=== PATIENT | female | born 1935 | race Caucasian/White ===

== ENCOUNTER 2020-04-14 17:21 | Inpatient (IN) ==
[2020-04-14] MEDS ORDERED: *HR* LORazepam 1 MG TABLET PO PRN (19:04)
[2020-04-14] MEDS ORDERED: hydrALAZINE 25 MG TABLET PO PRN (19:04)
[2020-04-15 05:47] LABS: Basophils % 0.1 %; Eosinophils # 0.3 K/mcL (0.0-0.6); Eosinophils % 1.9 %; Hematocrit 21.4 % (35.3-44.9); Hemoglobin 7.3 g/dL (11.5-15.4); Immature Granulocytes % 1.9 % (0-4); Lymphocytes # 1.3 K/mcL (0.6-4.6); Lymphocytes % 8.4 %; Mean Corpuscular HGB Conc 34.1 g/dL (31.6-35.5); Mean Corpuscular Hemoglobin 32.6 pg (28.0-33.3); Mean Corpuscular Volume 95.5 fL (83.0-100.0); Mean Platelet Volume 8.8 fL (9.4-12.4); Monocytes # 1.5 K/mcL (0.0-1.3); Monocytes % 9.8 %; Neutrophils # 12.1 K/mcL (1.6-8.9); Platelet Count 470 K/mcL (140-400); Red Blood Count 2.24 M/mcL (3.82-4.97); Red Cell Distribution Width 15.5 % (11.5-14.5); Segmented Neutrophils % 77.9 %; White Blood Count 15.5 K/mcL (4.3-11.1)
[2020-04-15 06:05] LABS: Alanine Aminotransferase 20 Units/L (7-52); Albumin 2.4 g/dL (3.5-5.7); Albumin/Globulin Ratio 1.3 (1.1-2.2); Alkaline Phosphatase 58 Units/L (34-104); Aspartate Amino Transferase 29 Units/L (13-39); BUN/Creatinine Ratio 45 (6-26); Bilirubin,Total 0.9 mg/dL (0.3-1.0); Blood Urea Nitrogen 19 mg/dL (8-23); Calcium 7.1 mg/dL (8.6-10.3); Carbon Dioxide 23 mEq/L (23-29); Chloride 99 mEq/L (98-107); Globulin 1.9 g/dL (2.4-3.5); Glucose 86 mg/dL (70-105); Magnesium 1.7 mg/dL (1.6-2.6); Osmolality,Calculated 266 (280-300); Potassium 3.6 mEq/L (3.5-5.1); Sodium 127 mEq/L (136-145); Total Protein 4.3 g/dL (6.4-8.9); eGFR For African Americans > 60 (> 60); eGFR For Non-African Americans > 60 (> 60)
[2020-04-15] MEDS: Sucralfate 1 GM TABLET PO PRN (08:58)
[2020-04-15] MEDS ORDERED: Aspirin Enteric Coated 81 MG Tablet PO SCH (09:00)
[2020-04-15] MEDS: amLODIPine 5 MG TABLET PO SCH (10:13)
[2020-04-15] MEDS: lisinopriL 5 MG TABLET PO SCH (10:14)
[2020-04-15] MEDS: Cholecalciferol (D-3) 1,000 UNIT (25MCG) TABLET PO SCH (10:15)
[2020-04-15] MEDS: Mirabegron [Myrbetriq] 50 MG PO SCH (10:15)
[2020-04-15] MEDS: Multivit/Ca/Min/Fe/FA 1 TAB TABLET PO SCH (10:17)
[2020-04-15] MEDS: *HR* OxyCODONE Immed Rel 5 MG TABLET PO PRN ×3 (10:53→21:56)
[2020-04-15] MEDS ORDERED: tiZANidine 4 MG TABLET PO PRN (12:35)
[2020-04-15] MEDS: *HR* LORazepam 1 MG TABLET PO PRN ×2 (14:59→21:55)
[2020-04-15] MEDS ORDERED: 0.9 % Sodium Chloride 250 ML IVC SCH (15:30)
[2020-04-16] MEDS: *HR* OxyCODONE Immed Rel 5 MG TABLET PO PRN ×4 (03:26→18:21)
[2020-04-16 06:04] LABS: Basophils # 0.1 K/mcL (0.0-0.2); Basophils % 0.3 %; Eosinophils # 0.3 K/mcL (0.0-0.6); Eosinophils % 1.4 %; Hemoglobin 9.4 g/dL (11.5-15.4); Immature Granulocytes % 3.4 % (0-4); Lymphocytes # 1.5 K/mcL (0.6-4.6); Lymphocytes % 6.8 %; Mean Corpuscular HGB Conc 33.6 g/dL (31.6-35.5); Mean Corpuscular Volume 95.2 fL (83.0-100.0); Mean Platelet Volume 8.4 fL (9.4-12.4); Monocytes % 9.2 %; Neutrophils # 17.5 K/mcL (1.6-8.9); Platelet Count 446 K/mcL (140-400); Red Blood Count 2.94 M/mcL (3.82-4.97); Red Cell Distribution Width 15.2 % (11.5-14.5); Segmented Neutrophils % 78.9 %; White Blood Count 22.2 K/mcL (4.3-11.1)
[2020-04-16] MEDS: *HR* Enoxaparin 40 MG/0.4 ML SYRINGE SQ SCH (06:10)
[2020-04-16] MEDS: Sucralfate 1 GM TABLET PO PRN (06:10)
[2020-04-16 06:24] LABS: BUN/Creatinine Ratio 34 (6-26); Blood Urea Nitrogen 14 mg/dL (8-23); Calcium 7.3 mg/dL (8.6-10.3); Carbon Dioxide 23 mEq/L (23-29); Chloride 99 mEq/L (98-107); Glucose 96 mg/dL (70-105); Osmolality,Calculated 264 (280-300); Potassium 3.8 mEq/L (3.5-5.1); Sodium 127 mEq/L (136-145); eGFR For African Americans > 60 (> 60); eGFR For Non-African Americans > 60 (> 60)
[2020-04-16] MEDS: Multivit/Ca/Min/Fe/FA 1 TAB TABLET PO SCH (08:52)
[2020-04-16] MEDS: Cholecalciferol (D-3) 1,000 UNIT (25MCG) TABLET PO SCH (08:53)
[2020-04-16] MEDS: Sennosides 8.6 MG TABLET PO SCH ×2 (08:53→20:39)
[2020-04-16] MEDS: lisinopriL 5 MG TABLET PO SCH (08:54)
[2020-04-16] MEDS: Aspirin Enteric Coated 81 MG Tablet PO SCH (08:54)
[2020-04-16] MEDS: amLODIPine 5 MG TABLET PO SCH (08:54)
[2020-04-16] MEDS: Mirabegron [Myrbetriq] 50 MG PO SCH (08:55)
[2020-04-16] MEDS: *HR* LORazepam 1 MG TABLET PO PRN ×2 (09:52→20:35)
[2020-04-16] MEDS ORDERED: Bisacodyl 10 MG RECTAL SUPPOSITORY RC ONE (11:41)
[2020-04-16 12:49] LABS: % Iron Saturation 12 % (15-50); Iron 29 mcg/dL (50-170); Transferrin 180 mg/dL (203-362)
[2020-04-17] MEDS: *HR* OxyCODONE Immed Rel 5 MG TABLET PO PRN ×5 (01:41→21:32)
[2020-04-17 06:04] LABS: Hematocrit 28.4 % (35.3-44.9); Hemoglobin 9.4 g/dL (11.5-15.4); Mean Corpuscular HGB Conc 33.1 g/dL (31.6-35.5); Mean Corpuscular Hemoglobin 31.6 pg (28.0-33.3); Mean Corpuscular Volume 95.6 fL (83.0-100.0); Mean Platelet Volume 8.4 fL (9.4-12.4); Platelet Count 492 K/mcL (140-400); Red Blood Count 2.97 M/mcL (3.82-4.97); Red Cell Distribution Width 16.2 % (11.5-14.5); White Blood Count 20.7 K/mcL (4.3-11.1)
[2020-04-17 06:24] LABS: Alanine Aminotransferase 21 Units/L (7-52); Albumin 2.6 g/dL (3.5-5.7); Albumin/Globulin Ratio 1.2 (1.1-2.2); Alkaline Phosphatase 63 Units/L (34-104); Aspartate Amino Transferase 29 Units/L (13-39); BUN/Creatinine Ratio 31 (6-26); Blood Urea Nitrogen 14 mg/dL (8-23); Calcium 7.5 mg/dL (8.6-10.3); Carbon Dioxide 25 mEq/L (23-29); Chloride 98 mEq/L (98-107); Globulin 2.1 g/dL (2.4-3.5); Glucose 97 mg/dL (70-105); Magnesium 1.9 mg/dL (1.6-2.6); Osmolality,Calculated 264 (280-300); Sodium 127 mEq/L (136-145); Total Protein 4.7 g/dL (6.4-8.9); eGFR For African Americans > 60 (> 60); eGFR For Non-African Americans > 60 (> 60)
[2020-04-17] MEDS: *HR* Enoxaparin 40 MG/0.4 ML SYRINGE SQ SCH (06:37)
[2020-04-17] MEDS: *HR* LORazepam 1 MG TABLET PO PRN ×2 (08:25→18:03)
[2020-04-17] MEDS: Sennosides 8.6 MG TABLET PO SCH ×2 (08:26→21:34)
[2020-04-17] MEDS: Multivit/Ca/Min/Fe/FA 1 TAB TABLET PO SCH (08:27)
[2020-04-17] MEDS: amLODIPine 5 MG TABLET PO SCH (08:27)
[2020-04-17] MEDS: Mirabegron [Myrbetriq] 50 MG PO SCH (08:27)
[2020-04-17] MEDS: Aspirin Enteric Coated 81 MG Tablet PO SCH (08:27)
[2020-04-17] MEDS: lisinopriL 5 MG TABLET PO SCH (08:27)
[2020-04-17] MEDS: Cholecalciferol (D-3) 1,000 UNIT (25MCG) TABLET PO SCH (08:27)
[2020-04-17] MEDS: Acetaminophen 325 MG TABLET PO PRN ×2 (08:33→18:50)
[2020-04-17] MEDS: Simethicone 80 MG TAB.CHEW PO SCH ×2 (10:33→18:03)
[2020-04-17] MEDS: polyethylene glycoL 3350 17 GM POWD.PACK PO SCH (14:23)
[2020-04-17 15:15] LABS: Bilirubin,Urine Negative (Negative); Blood,Urine Negative (Negative); Clarity,Urine Clear (Clear); Color,Urine Yellow (Yellow); Glucose,Urine (UA) Normal (Normal); Ketones,Urine Negative (Negative); Leukocyte Esterase,Urine Negative (Negative); Nitrite,Urine Negative (Negative); PH,Urine 6.5 pH Units (5.0-8.0); Protein,Urine 30 mg/dL (Neg-Trace); Specific Gravity,Urine >= 1.030 (1.010-1.025); Urobilinogen,Urine Normal (Normal)
[2020-04-17 15:17] LABS: Squamous Epithelial Cell,Urine Few per hpf (None-Few); WBC,Urine 0-3 per hpf (0-3)
[2020-04-17] MEDS ORDERED: MOM Conc 10 ML UD.LIQ PO PRN (17:21)
[2020-04-17] MEDS ORDERED: Preparation H Ointment 57 GM TUBE TP PRN (19:22)
[2020-04-17] MEDS: MYRBETRIQ 50 MG PO SCH (21:35)
[2020-04-18] MEDS: Simethicone 80 MG TAB.CHEW PO SCH ×3 (02:29→17:38)
[2020-04-18] MEDS: Acetaminophen 325 MG TABLET PO PRN ×3 (02:45→23:21)
[2020-04-18] MEDS: Sucralfate 1 GM TABLET PO PRN (02:45)
[2020-04-18] MEDS: *HR* OxyCODONE Immed Rel 5 MG TABLET PO PRN ×4 (03:35→19:46)
[2020-04-18] MEDS: *HR* Enoxaparin 40 MG/0.4 ML SYRINGE SQ SCH (06:22)
[2020-04-18] MEDS: Acetaminophen/Butalbital/CaffeineTABLET PO PRN (06:57)
[2020-04-18] MEDS: Sennosides 8.6 MG TABLET PO SCH ×2 (09:34→19:44)
[2020-04-18] MEDS: Multivit/Ca/Min/Fe/FA 1 TAB TABLET PO SCH (09:34)
[2020-04-18] MEDS: Cholecalciferol (D-3) 1,000 UNIT (25MCG) TABLET PO SCH (09:35)
[2020-04-18] MEDS: polyethylene glycoL 3350 17 GM POWD.PACK PO SCH (09:35)
[2020-04-18] MEDS: lisinopriL 5 MG TABLET PO SCH (09:35)
[2020-04-18] MEDS: Aspirin Enteric Coated 81 MG Tablet PO SCH (09:35)
[2020-04-18] MEDS: Bisacodyl 10 MG RECTAL SUPPOSITORY RC SCH (09:36)
[2020-04-18] MEDS: amLODIPine 5 MG TABLET PO SCH (09:36)
[2020-04-18] MEDS: MYRBETRIQ 50 MG PO SCH (19:47)
[2020-04-18] MEDS: *HR* LORazepam 1 MG TABLET PO PRN (20:58)
[2020-04-18] MEDS: Ondansetron ODT 4 MG TAB.RAPDIS SL PRN (20:58)
[2020-04-19] MEDS: Simethicone 80 MG TAB.CHEW PO SCH ×2 (01:57→09:47)
[2020-04-19] MEDS: *HR* OxyCODONE Immed Rel 5 MG TABLET PO PRN ×3 (03:40→13:11)
[2020-04-19] MEDS: *HR* Enoxaparin 40 MG/0.4 ML SYRINGE SQ SCH (04:30)
[2020-04-19] MEDS: Bisacodyl 10 MG RECTAL SUPPOSITORY RC SCH (04:31)
[2020-04-19 05:17] LABS: Hematocrit 29.4 % (35.3-44.9); Hemoglobin 9.8 g/dL (11.5-15.4); Mean Corpuscular HGB Conc 33.3 g/dL (31.6-35.5); Mean Corpuscular Hemoglobin 32.1 pg (28.0-33.3); Mean Corpuscular Volume 96.4 fL (83.0-100.0); Mean Platelet Volume 8.5 fL (9.4-12.4); Platelet Count 559 K/mcL (140-400); Red Blood Count 3.05 M/mcL (3.82-4.97); Red Cell Distribution Width 16.4 % (11.5-14.5); White Blood Count 19.3 K/mcL (4.3-11.1)
[2020-04-19 05:32] LABS: BUN/Creatinine Ratio 33 (6-26); Blood Urea Nitrogen 18 mg/dL (8-23); Calcium 7.7 mg/dL (8.6-10.3); Carbon Dioxide 24 mEq/L (23-29); Chloride 97 mEq/L (98-107); Glucose 98 mg/dL (70-105); Magnesium 1.9 mg/dL (1.6-2.6); Osmolality,Calculated 266 (280-300); Potassium 3.6 mEq/L (3.5-5.1); Sodium 127 mEq/L (136-145); eGFR For African Americans > 60 (> 60); eGFR For Non-African Americans > 60 (> 60)
[2020-04-19] MEDS: Acetaminophen 325 MG TABLET PO PRN ×2 (06:22→20:18)
[2020-04-19] MEDS: lisinopriL 5 MG TABLET PO SCH ×2 (09:47→21:37)
[2020-04-19] MEDS: Multivit/Ca/Min/Fe/FA 1 TAB TABLET PO SCH (09:47)
[2020-04-19] MEDS: amLODIPine 5 MG TABLET PO SCH ×2 (09:47→21:36)
[2020-04-19] MEDS: Sennosides 8.6 MG TABLET PO SCH ×2 (09:48→19:56)
[2020-04-19] MEDS: Aspirin Enteric Coated 81 MG Tablet PO SCH (09:48)
[2020-04-19] MEDS: *HR* LORazepam 1 MG TABLET PO PRN ×2 (09:48→19:58)
[2020-04-19] MEDS: polyethylene glycoL 3350 17 GM POWD.PACK PO SCH (09:50)
[2020-04-19] MEDS: Cholecalciferol (D-3) 1,000 UNIT (25MCG) TABLET PO SCH (09:51)
[2020-04-19] MEDS ORDERED: Lactulose Oral Soln 20 GM/30 ML UDC PO PRN (11:02)
[2020-04-19] MEDS ORDERED: *HR* LORazepam 2 MG/ML VIAL IVP ONE (15:30)
[2020-04-19] MEDS: Ondansetron ODT 4 MG TAB.RAPDIS SL PRN (16:03)
[2020-04-19] MEDS: Simethicone 80 MG TAB.CHEW PO PRN (19:57)
[2020-04-19] MEDS: MYRBETRIQ 50 MG PO SCH (19:57)
[2020-04-20] MEDS: Acetaminophen/Butalbital/CaffeineTABLET PO PRN ×2 (02:15→23:06)
[2020-04-20] MEDS: Bisacodyl 10 MG RECTAL SUPPOSITORY RC SCH (04:53)
[2020-04-20] MEDS: *HR* Enoxaparin 40 MG/0.4 ML SYRINGE SQ SCH (04:53)
[2020-04-20] MEDS: Cholecalciferol (D-3) 1,000 UNIT (25MCG) TABLET PO SCH (08:49)
[2020-04-20] MEDS: Aspirin Enteric Coated 81 MG Tablet PO SCH (08:49)
[2020-04-20] MEDS: amLODIPine 5 MG TABLET PO SCH (08:50)
[2020-04-20] MEDS: lisinopriL 5 MG TABLET PO SCH (08:50)
[2020-04-20] MEDS: polyethylene glycoL 3350 17 GM POWD.PACK PO SCH (08:51)
[2020-04-20] MEDS: Sennosides 8.6 MG TABLET PO SCH ×2 (08:51→19:39)
[2020-04-20] MEDS: Multivit/Ca/Min/Fe/FA 1 TAB TABLET PO SCH (08:59)
[2020-04-20] MEDS: *HR* OxyCODONE Immed Rel 5 MG TABLET PO PRN ×2 (09:47→19:39)
[2020-04-20] MEDS: Acetaminophen 325 MG TABLET PO PRN (14:05)
[2020-04-20] MEDS: *HR* LORazepam 1 MG TABLET PO PRN ×2 (14:06→23:06)
[2020-04-20] MEDS: Simethicone 80 MG TAB.CHEW PO PRN (19:39)
[2020-04-21] MEDS: *HR* Enoxaparin 40 MG/0.4 ML SYRINGE SQ SCH (05:52)
[2020-04-21] MEDS: *HR* OxyCODONE Immed Rel 5 MG TABLET PO PRN ×4 (05:52→21:28)
[2020-04-21] MEDS: Bisacodyl 10 MG RECTAL SUPPOSITORY RC SCH (05:52)
[2020-04-21] MEDS: Simethicone 80 MG TAB.CHEW PO PRN (09:48)
[2020-04-21] MEDS: Aspirin Enteric Coated 81 MG Tablet PO SCH (11:18)
[2020-04-21] MEDS: *HR* LORazepam 1 MG TABLET PO PRN ×2 (11:18→18:15)
[2020-04-21] MEDS: Multivit/Ca/Min/Fe/FA 1 TAB TABLET PO SCH (11:18)
[2020-04-21] MEDS: Cholecalciferol (D-3) 1,000 UNIT (25MCG) TABLET PO SCH (11:19)
[2020-04-21] MEDS: amLODIPine 5 MG TABLET PO SCH (11:19)
[2020-04-21] MEDS: Sennosides 8.6 MG TABLET PO SCH ×2 (11:19→17:04)
[2020-04-21] MEDS: polyethylene glycoL 3350 17 GM POWD.PACK PO SCH (11:21)
[2020-04-21] MEDS: lisinopriL 5 MG TABLET PO SCH (11:22)
[2020-04-22] MEDS: Bisacodyl 10 MG RECTAL SUPPOSITORY RC SCH (01:35)
[2020-04-22] MEDS: *HR* OxyCODONE Immed Rel 5 MG TABLET PO PRN ×4 (04:18→21:21)
[2020-04-22] MEDS: *HR* Enoxaparin 40 MG/0.4 ML SYRINGE SQ SCH (04:20)
[2020-04-22 05:19] LABS: Basophils % 0.4 %; Eosinophils # 0.1 K/mcL (0.0-0.6); Eosinophils % 1.7 %; Hematocrit 30.7 % (35.3-44.9); Immature Granulocytes % 0.7 % (0-4); Lymphocytes % 10.3 %; Mean Corpuscular HGB Conc 32.6 g/dL (31.6-35.5); Mean Corpuscular Hemoglobin 31.3 pg (28.0-33.3); Mean Corpuscular Volume 96.2 fL (83.0-100.0); Mean Platelet Volume 8.2 fL (9.4-12.4); Monocytes # 0.7 K/mcL (0.0-1.3); Monocytes % 8.1 %; Neutrophils # 6.5 K/mcL (1.6-8.9); Platelet Count 498 K/mcL (140-400); Red Blood Count 3.19 M/mcL (3.82-4.97); Red Cell Distribution Width 15.5 % (11.5-14.5); Segmented Neutrophils % 78.8 %; White Blood Count 8.2 K/mcL (4.3-11.1)
[2020-04-22 05:20] LABS: Lymphocytes # 0.8 K/mcL (0.6-4.6)
[2020-04-22 05:36] LABS: BUN/Creatinine Ratio 16 (6-26); Blood Urea Nitrogen 7 mg/dL (8-23); Calcium 7.2 mg/dL (8.6-10.3); Carbon Dioxide 27 mEq/L (23-29); Chloride 99 mEq/L (98-107); Glucose 107 mg/dL (70-105); Osmolality,Calculated 272 (280-300); Potassium 2.8 mEq/L (3.5-5.1); Sodium 132 mEq/L (136-145); eGFR For African Americans > 60 (> 60); eGFR For Non-African Americans > 60 (> 60)
[2020-04-22] MEDS: Cholecalciferol (D-3) 1,000 UNIT (25MCG) TABLET PO SCH (09:16)
[2020-04-22] MEDS: Multivit/Ca/Min/Fe/FA 1 TAB TABLET PO SCH (09:17)
[2020-04-22] MEDS: Aspirin Enteric Coated 81 MG Tablet PO SCH (09:17)
[2020-04-22] MEDS: lisinopriL 5 MG TABLET PO SCH (09:17)
[2020-04-22] MEDS: amLODIPine 5 MG TABLET PO SCH (09:17)
[2020-04-22] MEDS: polyethylene glycoL 3350 17 GM POWD.PACK PO SCH (09:21)
[2020-04-22] MEDS: Sennosides 8.6 MG TABLET PO SCH ×2 (09:21→19:54)
[2020-04-22] MEDS: Simethicone 80 MG TAB.CHEW PO PRN (11:41)
[2020-04-22] MEDS: *HR* LORazepam 1 MG TABLET PO PRN ×2 (11:43→19:46)
[2020-04-22] MEDS: Acetaminophen/Butalbital/CaffeineTABLET PO PRN (19:46)
[2020-04-22] MEDS: MYRBETRIQ 50 MG PO SCH (19:53)
[2020-04-22 20:26] LABS: Bilirubin,Urine Negative (Negative); Blood,Urine Small (Negative); Clarity,Urine Clear (Clear); Color,Urine Yellow (Yellow); Glucose,Urine (UA) Normal (Normal); Ketones,Urine Negative (Negative); Leukocyte Esterase,Urine Small (Negative); Nitrite,Urine Negative (Negative); PH,Urine 8.5 pH Units (5.0-8.0); Protein,Urine Negative (Neg-Trace); Urobilinogen,Urine Normal (Normal)
[2020-04-22 20:32] LABS: Bacteria,Urine Moderate per hpf (None-Few); Squamous Epithelial Cell,Urine Few per hpf (None-Few); Transitional Epi Cells,Urine Few per hpf (None-Few)
[2020-04-23] MEDS: Bisacodyl 10 MG RECTAL SUPPOSITORY RC SCH (03:42)
[2020-04-23] MEDS: Ondansetron ODT 4 MG TAB.RAPDIS SL PRN (03:50)
[2020-04-23] MEDS: *HR* OxyCODONE Immed Rel 5 MG TABLET PO PRN ×4 (03:52→20:32)
[2020-04-23] MEDS: *HR* LORazepam 1 MG TABLET PO PRN ×2 (03:53→20:32)
[2020-04-23] MEDS: *HR* Enoxaparin 40 MG/0.4 ML SYRINGE SQ SCH (04:00)
[2020-04-23 05:52] LABS: Basophils % 0.4 %; Eosinophils # 0.2 K/mcL (0.0-0.6); Eosinophils % 1.6 %; Hematocrit 33.3 % (35.3-44.9); Hemoglobin 10.6 g/dL (11.5-15.4); Immature Granulocytes % 0.7 % (0-4); Lymphocytes % 10.6 %; Mean Corpuscular HGB Conc 31.8 g/dL (31.6-35.5); Mean Corpuscular Hemoglobin 31.3 pg (28.0-33.3); Mean Corpuscular Volume 98.2 fL (83.0-100.0); Mean Platelet Volume 8.6 fL (9.4-12.4); Monocytes % 10.3 %; Neutrophils # 7.4 K/mcL (1.6-8.9); Platelet Count 497 K/mcL (140-400); Red Blood Count 3.39 M/mcL (3.82-4.97); Red Cell Distribution Width 15.6 % (11.5-14.5); Segmented Neutrophils % 76.4 %; White Blood Count 9.7 K/mcL (4.3-11.1)
[2020-04-23 06:18] LABS: BUN/Creatinine Ratio 10 (6-26); Blood Urea Nitrogen 4 mg/dL (8-23); Calcium 7.4 mg/dL (8.6-10.3); Carbon Dioxide 25 mEq/L (23-29); Chloride 101 mEq/L (98-107); Glucose 87 mg/dL (70-105); Osmolality,Calculated 270 (280-300); Potassium 3.6 mEq/L (3.5-5.1); Sodium 132 mEq/L (136-145); eGFR For African Americans > 60 (> 60); eGFR For Non-African Americans > 60 (> 60)
[2020-04-23] MEDS: lisinopriL 5 MG TABLET PO SCH (09:12)
[2020-04-23] MEDS: Aspirin Enteric Coated 81 MG Tablet PO SCH (09:12)
[2020-04-23] MEDS: amLODIPine 5 MG TABLET PO SCH (09:12)
[2020-04-23] MEDS: Multivit/Ca/Min/Fe/FA 1 TAB TABLET PO SCH (09:12)
[2020-04-23] MEDS: Sennosides 8.6 MG TABLET PO SCH ×2 (09:12→20:31)
[2020-04-23] MEDS: polyethylene glycoL 3350 17 GM POWD.PACK PO SCH (09:13)
[2020-04-23] MEDS: Cholecalciferol (D-3) 1,000 UNIT (25MCG) TABLET PO SCH (09:13)
[2020-04-23] MEDS ORDERED: Sulfamethoxazole/Trimeth DS 1 EACH TABLET PO SCH (09:45)
[2020-04-23] MEDS: Simethicone 80 MG TAB.CHEW PO PRN (14:00)
[2020-04-23] MEDS: MYRBETRIQ 50 MG PO SCH (20:37)
[2020-04-24] MEDS: Acetaminophen/Butalbital/CaffeineTABLET PO PRN ×2 (01:38→14:48)
[2020-04-24] MEDS: Bisacodyl 10 MG RECTAL SUPPOSITORY RC SCH (05:23)
[2020-04-24] MEDS: *HR* Enoxaparin 40 MG/0.4 ML SYRINGE SQ SCH (05:23)
[2020-04-24] MEDS: *HR* OxyCODONE Immed Rel 5 MG TABLET PO PRN ×3 (05:23→20:09)
[2020-04-24 05:37] LABS: Basophils % 0.2 %; Eosinophils # 0.2 K/mcL (0.0-0.6); Eosinophils % 1.6 %; Hematocrit 32.6 % (35.3-44.9); Hemoglobin 10.3 g/dL (11.5-15.4); Immature Granulocytes % 0.5 % (0-4); Lymphocytes # 1.2 K/mcL (0.6-4.6); Lymphocytes % 12.5 %; Mean Corpuscular HGB Conc 31.6 g/dL (31.6-35.5); Mean Corpuscular Hemoglobin 30.9 pg (28.0-33.3); Mean Corpuscular Volume 97.9 fL (83.0-100.0); Mean Platelet Volume 8.3 fL (9.4-12.4); Neutrophils # 7.2 K/mcL (1.6-8.9); Platelet Count 489 K/mcL (140-400); Red Blood Count 3.33 M/mcL (3.82-4.97); Red Cell Distribution Width 15.6 % (11.5-14.5); Segmented Neutrophils % 75.2 %; White Blood Count 9.5 K/mcL (4.3-11.1)
[2020-04-24 05:55] LABS: BUN/Creatinine Ratio 13 (6-26); Blood Urea Nitrogen 6 mg/dL (8-23); Calcium 7.9 mg/dL (8.6-10.3); Carbon Dioxide 26 mEq/L (23-29); Chloride 100 mEq/L (98-107); Glucose 92 mg/dL (70-105); Osmolality,Calculated 269 (280-300); Potassium 4.3 mEq/L (3.5-5.1); Sodium 131 mEq/L (136-145); eGFR For African Americans > 60 (> 60); eGFR For Non-African Americans > 60 (> 60)
[2020-04-24] MEDS: Multivit/Ca/Min/Fe/FA 1 TAB TABLET PO SCH (09:58)
[2020-04-24] MEDS: Aspirin Enteric Coated 81 MG Tablet PO SCH (09:59)
[2020-04-24] MEDS: Cholecalciferol (D-3) 1,000 UNIT (25MCG) TABLET PO SCH (09:59)
[2020-04-24] MEDS: amLODIPine 5 MG TABLET PO SCH (09:59)
[2020-04-24] MEDS: Sennosides 8.6 MG TABLET PO SCH ×2 (09:59→20:08)
[2020-04-24] MEDS: lisinopriL 5 MG TABLET PO SCH (09:59)
[2020-04-24] MEDS: polyethylene glycoL 3350 17 GM POWD.PACK PO SCH ×2 (10:03→14:49)
[2020-04-24] MEDS: *HR* LORazepam 1 MG TABLET PO PRN ×2 (10:26→20:09)
[2020-04-24] MEDS: MYRBETRIQ 50 MG PO SCH (20:16)
[2020-04-25] MEDS: Acetaminophen/Butalbital/CaffeineTABLET PO PRN ×2 (03:05→15:01)
[2020-04-25] MEDS: Bisacodyl 10 MG RECTAL SUPPOSITORY RC SCH (04:54)
[2020-04-25] MEDS: *HR* Enoxaparin 40 MG/0.4 ML SYRINGE SQ SCH (04:54)
[2020-04-25] MEDS: *HR* OxyCODONE Immed Rel 5 MG TABLET PO PRN ×3 (04:55→20:26)
[2020-04-25] MEDS: amLODIPine 5 MG TABLET PO SCH (09:27)
[2020-04-25] MEDS: lisinopriL 5 MG TABLET PO SCH (09:27)
[2020-04-25] MEDS: Sennosides 8.6 MG TABLET PO SCH ×2 (09:28→20:26)
[2020-04-25] MEDS: Multivit/Ca/Min/Fe/FA 1 TAB TABLET PO SCH (09:28)
[2020-04-25] MEDS: Aspirin Enteric Coated 81 MG Tablet PO SCH (09:28)
[2020-04-25] MEDS: Simethicone 80 MG TAB.CHEW PO PRN (09:29)
[2020-04-25] MEDS: polyethylene glycoL 3350 17 GM POWD.PACK PO SCH (09:29)
[2020-04-25] MEDS: Cholecalciferol (D-3) 1,000 UNIT (25MCG) TABLET PO SCH (09:29)
[2020-04-25] MEDS: *HR* LORazepam 1 MG TABLET PO PRN (20:26)
[2020-04-25] MEDS: MYRBETRIQ 50 MG PO SCH (20:30)
[2020-04-26] MEDS: Acetaminophen/Butalbital/CaffeineTABLET PO PRN (01:07)
[2020-04-26] MEDS: Simethicone 80 MG TAB.CHEW PO PRN (04:50)
[2020-04-26] MEDS: *HR* Enoxaparin 40 MG/0.4 ML SYRINGE SQ SCH (04:51)
[2020-04-26] MEDS: *HR* OxyCODONE Immed Rel 5 MG TABLET PO PRN ×2 (04:51→09:27)
[2020-04-26] MEDS: Bisacodyl 10 MG RECTAL SUPPOSITORY RC SCH (04:52)
[2020-04-26 08:50] VITALS: BP 132/69
[2020-04-26] MEDS ORDERED: Sulfamethoxazole/Trimeth DS 1 EACH TABLET PO SCH (09:00)
[2020-04-26] MEDS: Cholecalciferol (D-3) 1,000 UNIT (25MCG) TABLET PO SCH (09:27)
[2020-04-26] MEDS: Sennosides 8.6 MG TABLET PO SCH (09:28)
[2020-04-26] MEDS: Aspirin Enteric Coated 81 MG Tablet PO SCH (09:28)
[2020-04-26] MEDS: lisinopriL 5 MG TABLET PO SCH (09:28)
[2020-04-26] MEDS: Multivit/Ca/Min/Fe/FA 1 TAB TABLET PO SCH (09:28)
[2020-04-26] MEDS: polyethylene glycoL 3350 17 GM POWD.PACK PO SCH (09:28)
[2020-04-26] MEDS: amLODIPine 5 MG TABLET PO SCH (09:28)
== END 2020-04-26 10:59 | disposition home health service (06) | DRG 560 ==
LOC: INPGRE 17:59
PROVIDERS: ADMIT Family Medicine; ATTEND Family Medicine